=== PATIENT | female | born 1935 | race Caucasian/White ===

== ENCOUNTER 2017-06-10 13:16 | Outpatient (CLI) | payer MEDICARE, OTHER ==
[~2017-06-10] VITALS: Ht 171.4 cm; Wt 84.1 kg
[2017-06-10 14:01] VITALS: BP 143/96
[2017-06-10 14:32] LABS: BASOPHILS % (AUTO) 1 % (0-10); EOSINOPHILS # (AUTO) 0.2 10^3/uL (0.0-0.3); EOSINOPHILS % (AUTO) 2 % (0-10); HEMATOCRIT 40 % (35-52); HEMOGLOBIN 13.1 G/DL (11.5-16.0); LYMPHOCYTES # (AUTO) 1.6 X 10^3 (1.0-4.0); LYMPHOCYTES % (AUTO) 23 % (12-44); MEAN CORPUSCULAR HEMOGLOBIN 29 PG (25-34); MEAN CORPUSCULAR HGB CONC 33 G/DL (32-36); MEAN CORPUSCULAR VOLUME 87 FL (80-99); MEAN PLATELET VOLUME 10.4 FL (7.4-10.4); MONOCYTES # (AUTO) 0.9 X 10^3 (0.0-1.0); MONOCYTES % (AUTO) 12 % (0-12); NEUTROPHILS # (AUTO) 4.6 X 10^3 (1.8-7.8); NEUTROPHILS % (AUTO) 63 % (42-75); PLATELET COUNT 276 10^3/uL (130-400); RED CELL DISTRIBUTION WIDTH 15.4 % (10.0-14.5); WHITE BLOOD COUNT 7.2 10^3/uL (4.3-11.0)
[2017-06-10] MEDS ORDERED: POTA10TA6 PO (14:47)
[2017-06-10] MEDS ORDERED: ASPI-586 PO (14:47)
[2017-06-10] MEDS ORDERED: APIX2.5T PO (14:47)
[2017-06-10] MEDS ORDERED: OMEP40CA36 PO (14:47)
[2017-06-10] MEDS ORDERED: ONDN4T PO (14:47)
[2017-06-10] MEDS ORDERED: INSU300I SQ (14:47)
[2017-06-10] MEDS ORDERED: ACET325T38 PO (14:47)
[2017-06-10] MEDS ORDERED: LINA5TAB PO (14:47)
[2017-06-10] MEDS ORDERED: AMLO5TAB2 PO (14:47)
[2017-06-10] MEDS ORDERED: VALS160T2 PO (14:47)
[2017-06-10] MEDS ORDERED: LIRA0.6P SQ (14:47)
[2017-06-10] MEDS ORDERED: FURO-125 PO (14:47)
[2017-06-10] MEDS ORDERED: SIMV20TA3 PO (14:47)
[2017-06-10] MEDS ORDERED: SOTA80TA PO (14:47)
[2017-06-10] MEDS ORDERED: ESCI20TA PO (14:47)
[2017-06-10 14:49] LABS: BUN/CREATININE RATIO 23; CALCIUM 9.4 MG/DL (8.5-10.1); CARBON DIOXIDE 28 MMOL/L (21-32); CHLORIDE 104 MMOL/L (98-107); CREATININE SERUM 0.71 MG/DL (0.60-1.30); GFR ESTIMATED > 60; GLUCOSE 99 MG/DL (70-105); POTASSIUM 3.9 MMOL/L (3.6-5.0); SODIUM 141 MMOL/L (135-145)
[2017-06-12] MEDS ORDERED: ONDA4TAB8 PO (10:58)
[2017-06-12] MEDS ORDERED: ACET-168 PO (11:07)
[2017-06-12] MEDS ORDERED: CHOL20003 PO (11:07)
[2017-06-12] MEDS ORDERED: LACT1CAP58 PO (11:11)
== END 2017-06-10 15:00 ==
LOC: PREOP 13:16
PROVIDERS: ATTEND Orthopaedic Surgery Orthopaedic Surgery of the Spine
DX: Z01.810 Encounter for preprocedural cardiovascular examination (principal); Z01.812 Encounter for preprocedural laboratory examination; Z11.2 Encounter for screening for other bacterial diseases; M48.02 Spinal stenosis, cervical region
CPT/HCPCS: 36415; 80048; 85025; 87081; 93005

== ENCOUNTER 2017-06-17 06:39 | Inpatient (IN) | payer MEDICARE, OTHER ==
[2017-06-17] VITALS (20 sets, daily range): BP systolic 130–180; BP diastolic 72–106
[~2017-06-17] VITALS: Ht 171.4 cm; Wt 88.5 kg
[~2017-06-17 06:39] MED LIST: ACET-168 PO; ACET325T38 PO; AMLO5TAB2 PO; APIX2.5T PO; ASPI-586 PO; CHOL20003 PO; ESCI20TA PO; FURO-125 PO; INSU300I SQ; LACT1CAP58 PO; LINA5TAB PO; LIRA0.6P SQ; OMEP40CA36 PO; ONDA4TAB8 PO; ONDN4T PO; POTA10TA6 PO; SIMV20TA3 PO; SOTA80TA PO; VALS160T2 PO
[2017-06-17] MEDS ORDERED: ceFAZolin 2 GM IV Premixed 50 ML IV ONE (07:15)
[2017-06-17] MEDS ORDERED: ONDANSETRON 4 MG (ZOFRAN) ORAL DISSOLVE TAB PO PRN ×2 (07:15→14:00)
[2017-06-17] MEDS ORDERED: fentaNYL INJECTION 100 MCG/2 ML AMP ONE (07:19)
[2017-06-17] MEDS: LACTATED RINGERS 1,000 ML IV PRN ×2 (07:25→10:35)
[2017-06-17] MEDS ORDERED: FAMOTIDINE 20MG/2ML IV (PEPCID) ONE (07:29)
[2017-06-17] MEDS ORDERED: ACETAMINOPHEN 325 MG TABLET/CAPLET (TYLENOL) PO PRN (07:30)
[2017-06-17] MEDS ORDERED: FAMOTIDINE 20MG/2ML IV (PEPCID) IVP ONE (07:30)
[2017-06-17] MEDS ORDERED: GENTAMICIN 40 MG/ML 2 ML INJ SDV ONE (07:59)
[2017-06-17] MEDS ORDERED: NS (IVPB) 50 ML ONE (08:44)
[2017-06-17] MEDS ORDERED: LIDOCAINE PF 2% 5 ML (XYLOCAINE) VIAL ONE (08:55)
[2017-06-17] MEDS ORDERED: DEXMEDETOMIDINE 200 MCG/2 ML (PRECEDEX) VIAL IV ONE (08:55)
[2017-06-17] MEDS ORDERED: ROCURONIUM 10 MG/ML 5 ML SYRINGE IV ONE (08:55)
[2017-06-17] MEDS ORDERED: SUCCINYLCHOLINE INJ 100 MG/5 ML SYR ONE (08:55)
[2017-06-17] MEDS ORDERED: proPOfol 200 MG/20 ML (DIPRIVAN) VIAL IV ONE (08:55)
[2017-06-17] MEDS ORDERED: SEVOFLURANE (ULTANE) 15 ML INHAL SOLN ONE (08:55)
[2017-06-17] MEDS ORDERED: NON-FORMULARY MEDICATION 1 EA EA (Sotalol HCl (Sotalol) 120 MG) PO SCH (09:00)
[2017-06-17] MEDS ORDERED: MEPIVACAINE (CARBOCAINE) 2% 20 ML VIAL ONE (09:20)
[2017-06-17] MEDS ORDERED: BUP/EPI 0.5% 1:200,000 (SENSORCAINE) 30 ML VIAL ONE (09:21)
--- NOTE | 2017-06-17 10:08 | Diagnostic Imaging Report ---
INDICATION: Fluoroscopy for cervical spine surgery. FINDINGS: Fluoroscopy was provided in the OR during cervical spine surgery. Five seconds of fluoroscopy was utilized. Surgical instruments are identified posteriorly. A surgical localizing instrument is noted posteriorly. The images are significantly degraded limiting evaluation for cervical spinal levels. IMPRESSION: Fluoroscopy for cervical spine localization in the OR. Dictated by: Dictated on workstation # [id number]
--- NOTE | 2017-06-17 10:20 | Progress Note-Post Operative ---
Post-Operative Progess Note Surgeon (s)/Hogshead Mat Assembler (s) Surgeon RYAN GALARZA MD Hogshead Mat Assembler: MILTON Seaman Pre-Operative Diagnosis Cervical Stenosis, Myelopathy Post-Operative Diagnosis Same Procedure & Operative Findings Date of Procedure 06/17/17 Procedure Performed/Findings C3-6 Laminectomy Anesthesia Type GETA Estimated Blood Loss Estimated blood loss (mL): 50 Specimens/Packing Specimens Removed Cultures and path specimen RYAN GALARZA MD Jun 17, 2017 10:20 am
[2017-06-17] MEDS ORDERED: GLYCOPYRROLATE 0.2 MG/ML (ROBINUL) 2 ML VIAL ONE (11:02)
[2017-06-17] MEDS ORDERED: NEOSTIGMINE (BLOXIVERZ ) 1 MG/1ML 10 ML VIAL ONE (11:02)
[2017-06-17] MEDS ORDERED: ONDANSETRON 4 MG/2 ML (SDV) Z0FRAN IVP PRN (11:15)
[2017-06-17] MEDS ORDERED: fentaNYL INJECTION 100 MCG/2 ML AMP IVP PRN (11:15)
[2017-06-17] MEDS ORDERED: PATIENT MAY USE OWN MEDS, ALL MC SCH (13:00)
[2017-06-17] MEDS: HYDROcodone/APAP 5 MG/325 MG (LORTAB) TAB PO PRN ×3 (14:28→20:31)
[2017-06-17] MEDS: MILK OF MAGNESIA 400 MG/5 ML 30 ML UDC PO SCH ×2 (14:38→16:11)
[2017-06-17] MEDS: NS IV 1000 ML 1,000 ML IV SCH ×2 (14:38→22:48)
[2017-06-17] MEDS ORDERED: ceFAZolin INJECTION 2,000 MG in NS (IVPB) 100 ML IV SCH (15:30)
[2017-06-17] MEDS: DOCUSATE SODIUM 100 MG (COLACE) CAP PO PRN ×2 (16:10→20:31)
[2017-06-17] MEDS: ceFAZolin 2 GM IV Premixed 50 ML IV SCH ×2 (16:11→22:57)
[2017-06-17] MEDS: FUROSEMIDE 20 MG (LASIX) TAB PO SCH (16:12)
[2017-06-17] MEDS: KCL 10 MEQ TAB (MICRO K) PO SCH (16:12)
[2017-06-17] MEDS: ESCITALOPRAM 20 MG (LEXAPRO) TABLET NON-FORMULARY PO SCH (16:13)
[2017-06-17] MEDS: inSUlin (REGULAR) HUMAN 1 UNIT/0.01 ML (CHARGE PER UNIT) SC SCH ×3 (16:58→23:01)
--- NOTE | 2017-06-17 17:00 | OPERATIVE REPORT ---
DATE OF SERVICE: 06/17/2017 PREOPERATIVE DIAGNOSIS: Cervical stenosis and cervical myelopathy. POSTOPERATIVE DIAGNOSIS: Cervical stenosis and cervical myelopathy. PROCEDURE PERFORMED: Partial C3 through partial C6 laminectomy with complete excision of C4 and C5 posteriorly. DATE AND TIME OF SURGERY: Please see anesthesia record. SURGEON: Alfa Galarza MD CROWN BUFFER: JOURDAN Seaman ROLE OF MARKER DELIVERY: Aid in retraction of the procedure, suction of neural elements and wound closure. ANESTHESIA: General endotracheal. ESTIMATED BLOOD LOSS: 50 mL. INTRAVENOUS FLUIDS: Please see anesthesia record. ANTIBIOTICS: Ancef. COMPLICATIONS: None. INDICATIONS FOR PROCEDURE: The patient is an 81-year-old female with progressively intolerable myelopathy features. High-grade stenosis noted on imaging, failed conservative therapy, desires operative treatment. SPECIMENS: Cultures and pathology specimens were sent of the posterior calcified structures, which appear to be pseudogout. NEUROMONITORING: Standard intraoperative neuromonitoring was performed. Dr. Vidales was reading SSEPS, EMGs and TOFs were carried out continuously and stable throughout the procedure stable. TcMEPs were not performed due to metallic implants in her ears. DESCRIPTION OF PROCEDURE: The patient was taken to the preoperative holding area and brought back to the operative suite after induction of general anesthesia, preoperative antibiotics, carefully turned prone on Dell table with careful padding to all extremities, sterilely prepped and draped posterior cervical and thoracic spine. Incision was made overlying C3-C6. Dissection carried down to the level of the lamina. C-arm was brought in for confirmation and appropriate levels were confirmed, partial 3, complete 4, complete 5 and partial C6 laminectomy was carried out. Once the thecal sac was decompressed, some calcified fluid, which appeared like pseudogout was sent for culture and pathologic examination. Decompression was assured, hemostasis achieved with bipolar cautery and bone wax and FloSeal. Once hemostasis was obtained, wound was copiously irrigated, closed in layers. The patient transferred to recovery room in stable condition and tolerated the procedure well. Job ID: [id number] DocumentID: [id number] Dictated Date: 06/17/2017 10:15:24 Donor Services Technician Date: 06/17/2017 16:59:14 Dictated By: ALFA GALARZA MD [facility]
[2017-06-17] MEDS: ONDANSETRON 4 MG/2 ML (SDV) Z0FRAN IV PRN (17:38)
[2017-06-17] MEDS: morphine INJ 10 MG/ML 1ML (SYR OR VIAL) IM PRN ×2 (17:38→22:58)
[2017-06-17] MEDS: SIMvastatin 20 MG (ZOCOR) TAB PO SCH (20:31)
[2017-06-17] MEDS: amLODIPine 5 MG (NORVASC) TAB PO SCH (20:32)
[2017-06-17] MEDS: SOTALOL 80 MG (BETAPACE) TAB PO SCH (20:32)
[2017-06-17] MEDS: VALSARTAN 160 MG (DIOVAN) TABLET PO SCH (20:33)
[2017-06-18] VITALS (10 sets, daily range): BP systolic 138–167; BP diastolic 72–97
[2017-06-18] MEDS: HYDROcodone/APAP 5 MG/325 MG (LORTAB) TAB PO PRN ×4 (00:37→19:44)
[2017-06-18] MEDS: ONDANSETRON 4 MG/2 ML (SDV) Z0FRAN IV PRN (00:37)
[2017-06-18] MEDS: MULTIVIT W/MINERALS TAB (THERAGRAN M) PO SCH (05:44)
--- NOTE | 2017-06-18 06:15 | Progress Note (SOAP) ---
Subjective Date Seen by Provider: Jun 18, 2017 Time Seen by Provider: 06:12 Subjective/Events-last exam Pain ok Worried about BM, but + flatus Objective Exam Vital Signs Date Time Temp Pulse Resp B/P (MAP) Pulse Ox O2 Delivery O2 Flow Rate FiO2 06/18/17 06:00 91 18 167/97 (120) 94 Nasal Cannula 3.00 06/18/17 05:00 85 24 164/84 (110) 92 Nasal Cannula 3.00 06/18/17 04:00 91 Nasal Cannula 4.50 06/18/17 04:00 86 21 158/84 (108) 90 Nasal Cannula 3.00 06/18/17 03:00 85 21 158/80 (106) 94 Nasal Cannula 3.00 06/18/17 02:00 86 20 153/85 (107) 95 Nasal Cannula 3.00 06/18/17 01:00 85 06/18/17 01:00 85 24 166/82 (110) 95 Nasal Cannula 3.00 06/18/17 00:15 Nasal Cannula 3.00 06/18/17 00:00 85 21 156/81 (106) 93 Nasal Cannula 3.00 06/17/17 23:31 Nasal Cannula 3.00 06/17/17 23:30 87 20 166/85 (112) 94 Nasal Cannula 3.00 06/17/17 23:03 99.7 06/17/17 23:00 87 24 171/89 (116) 94 Nasal Cannula 3.00 06/17/17 22:30 86 24 166/91 (116) 94 Nasal Cannula 3.00 06/17/17 22:00 85 22 171/85 (113) 93 Nasal Cannula 3.00 06/17/17 21:30 83 24 172/106 (128) 94 Nasal Cannula 3.00 06/17/17 21:14 99.4 06/17/17 21:00 82 24 180/88 (118) 95 Nasal Cannula 3.00 06/17/17 20:00 80 22 176/89 (118) 93 Nasal Cannula 3.00 06/17/17 19:30 Nasal Cannula 3.00 06/17/17 19:00 79 06/17/17 19:00 79 23 163/86 (111) 93 Nasal Cannula 3.00 06/17/17 18:00 72 13 173/86 (115) 94 Nasal Cannula 3.00 06/17/17 17:00 73 23 169/87 (114) 96 Nasal Cannula 3.00 06/17/17 16:00 70 14 155/81 (105) 94 Nasal Cannula 3.00 06/17/17 16:00 96 Nasal Cannula 3.00 06/17/17 15:00 70 18 168/82 (110) 96 Nasal Cannula 3.00 06/17/17 14:43 70 06/17/17 14:00 70 19 132/77 (95) 97 Nasal Cannula 3.00 06/17/17 13:30 70 20 133/74 (93) 94 Nasal Cannula 3.00 06/17/17 13:00 70 20 135/72 (93) 92 Nasal Cannula 3.00 06/17/17 12:30 69 21 130/73 (92) 91 Nasal Cannula 3.00 06/17/17 12:15 70 18 133/75 (94) 93 Nasal Cannula 3.00 06/17/17 12:00 73 20 130/73 (92) 92 Nasal Cannula 3.00 06/17/17 11:50 98.3 74 20 132/75 (94) 94 Nasal Cannula 3.00 06/17/17 11:50 Nasal Cannula 3.00 06/17/17 07:00 98.2 102 18 146/101 (116) 92 Room Air I & O 06/18/17 07:00 Intake Total 2290 ml Output Total 550 ml Balance 1740 ml Capillary Refill : General Appearance: No Apparent Distress HEENT: PERRL/EOMI, Pharynx Normal Neck: Supple, Tender Midline, Other (Dressing changed, incision good) Respiratory: Lungs Clear, No Accessory Muscle Use, No Respiratory Distress Cardiovascular: Regular Rate, Rhythm Gastrointestinal: normal bowel sounds, non tender, soft Extremity: Normal Capillary Refill Neurologic/Psychiatric: Alert, Oriented x3, No Motor/Sensory Deficits Results Lab Laboratory Tests 06/17/17 07:10: Glucometer 154H 06/17/17 10:55: Glucometer 135H 06/17/17 23:00: Glucometer 147H Assessment/Plan Assessment/Plan Assess & Plan/Chief Complaint Cervical Stenosis Cervical Myelopathy A-fib Plan Regular floor Up with PT Work on bowels Clinical Quality Measures DVT/VTE Risk/Contraindication: Risk Factor Score Per Nursin RFS Level Per Nursing on Admit: 4+=Very High RYAN GALARZA MD 6, 2018 6:14 am
[2017-06-18] MEDS: inSUlin (REGULAR) HUMAN 1 UNIT/0.01 ML (CHARGE PER UNIT) SC SCH ×3 (06:17→19:45)
[2017-06-18] MEDS: ceFAZolin 2 GM IV Premixed 50 ML IV SCH (06:17)
[2017-06-18 06:44] LABS: BASOPHILS % (AUTO) 0 % (0-10); EOSINOPHILS % (AUTO) 0 % (0-10); HEMATOCRIT 37 % (35-52); LYMPHOCYTES % (AUTO) 8 % (12-44); MEAN CORPUSCULAR HEMOGLOBIN 29 PG (25-34); MEAN CORPUSCULAR HGB CONC 32 G/DL (32-36); MEAN CORPUSCULAR VOLUME 89 FL (80-99); MEAN PLATELET VOLUME 10.2 FL (7.4-10.4); MONOCYTES # (AUTO) 1.4 X 10^3 (0.0-1.0); MONOCYTES % (AUTO) 11 % (0-12); NEUTROPHILS # (AUTO) 9.9 X 10^3 (1.8-7.8); NEUTROPHILS % (AUTO) 80 % (42-75); PLATELET COUNT 221 10^3/uL (130-400); RED BLOOD COUNT 4.17 10^6/uL (4.35-5.85); RED CELL DISTRIBUTION WIDTH 15.4 % (10.0-14.5); WHITE BLOOD COUNT 12.3 10^3/uL (4.3-11.0)
[2017-06-18 07:03] LABS: ALANINE AMINOTRANSFERASE 81 U/L (0-55); ALBUMIN 3.7 GM/DL (3.2-4.5); ALKALINE PHOSPHATASE 157 U/L (40-136); BILIRUBIN,TOTAL 0.9 MG/DL (0.1-1.0); BUN/CREATININE RATIO 14; CALCIUM 8.6 MG/DL (8.5-10.1); CARBON DIOXIDE 25 MMOL/L (21-32); CHLORIDE 101 MMOL/L (98-107); CREATININE SERUM 0.66 MG/DL (0.60-1.30); GFR ESTIMATED > 60; GLUCOSE 179 MG/DL (70-105); POTASSIUM 3.7 MMOL/L (3.6-5.0); SODIUM 138 MMOL/L (135-145); TOTAL PROTEIN 7.2 GM/DL (6.4-8.2)
--- NOTE | 2017-06-18 08:21 | Consultation-Hospitalist ---
HPI History of Present Illness: HPI/Chief Complaint Pt is an 81yoCF with a PMH of a-fib, HTN, IDDMII, and breast cancer who was admitted to the ICU followin c3-6 laminectomy and excision fo C4-5. I am consulted for management of her chronic medical issues. She reports she is feeling well but has not had a BM yet. That is her only concern. She has not eaten much either but did try to drink an ensure. She reports her pain is well controlled now but had an "uncomfortable" night due to her surgical pain. She otherwise has no complaints. Source: patient Date Seen 06/18/17 Attending Physician Alfa Redd MD PCP Kim Parker MD Referring Physician Date of Admission Jun 17, 2017 at 6:39 am Home Medications & Allergies Home Medications Reviewed patient Home Medication Reconciliation Form Allergies Allergies Coded Allergies No Known Drug Allergies (Unverified06/10/17) Past Svnoqhj-Bhgvsa-Rnsxaj Hx Patient Social History Employed/Student: retired Alcohol Use: Denies Use Recreational Drug Use: No Smoking Status: Never a Smoker Physical Abuse Screen: No Sexual Abuse: No Recent Foreign Travel: No Contact w/other who traveled: No Recent Hopitalizations: No Recent Infectious Disease Expo: No Immunizations Up To Date Date of Pneumonia Vaccine: Jan 30, 2016 Date of Influenza Vaccine: Jan 28, 2017 Seasonal Allergies Seasonal Allergies: No Surgeries Yes (LUMPECTOMY, NECK, COLONRESECTION WITH COLOSTOMY, REVERSAL OF COLOSTOMY) Respiratory No Cardiovascular Yes (PACEMAKER) Neurological No Reproductive System Sexually Transmitted Disease: No HIV/AIDS: No Genitourinary Yes Kidney Stones Gastrointestinal Yes (HX RUPTURED BOWEL) Gastroesophageal Reflux, Polyps Musculoskeletal Yes (STENOSIS) Arthritis Endocrine History of Endocrine Disorders: Yes HEENT History of HEENT Disorders: Yes (GLASSES) Loss of Vision: Bilateral Hearing Impairment: Bilateral Hearing Aide Cancer Yes Breast Type of Treatment: Surgical Intervention Psychosocial History of Psychiatric Problem: Yes Behavioral Health Disorders: Anxiety, Depression Integumentary History of Skin or Integumenta: Yes (DRY SKIN) Blood Transfusions History of Blood Disorders: No Adverse Reaction to a Blood Tr: No (N/A) Review of Systems Constitutional: No chills, No fever EENTM: No blurred vision, No double vision, No nose congestion, No throat pain Respiratory: No cough, No dyspnea on exertion, No short of breath Cardiovascular: No chest pain, No edema, No palpitations Gastrointestinal: No abdominal pain, constipation, No diarrhea, No nausea, No vomiting Genitourinary: No dysuria, No frequency Musculoskeletal: see HPI, neck pain Skin: No lesions, No rash Psychiatric/Neurological: Denies Headache, Denies Numbness, Denies Tingling Physical Exam Physical Exam Vital Signs Vital Signs - First Documented 06/17/17 07:00 Temp 98.2 Pulse 102 Resp 18 B/P (MAP) 146/101 (116) Pulse Ox 92 O2 Delivery Room Air Capillary Refill : General Appearance: No Apparent Distress, WD/WN HEENT: PERRL/EOMI, Moist Mucous Membranes Neck: Non Tender, Supple Respiratory: Lungs Clear, No Respiratory Distress Cardiovascular: Regular Rate, Rhythm, No Murmur Gastrointestinal: Normal Bowel Sounds, Non Tender, Soft Extremity: Normal Capillary Refill, No Calf Tenderness Neurologic/Psychiatric: Alert, Oriented x3, Normal Mood/Affect Skin: Normal Color, Warm/Dry Results Results/Procedures Lab Laboratory Tests 06/18/17 06:36 Assessment/Plan Admission Diagnosis S/P LAMINECTOMY Admission Status: Other Diagnosis/Problems Diagnosis/Problems (1) Atrial fibrillation Assessment & Plan: Continue sotalol Eliquis held per Dr Redd Resume when okay with surgery (2) Essential (primary) hypertension Assessment & Plan: Continue Valsartan and Amlodipine (3) Insulin dependent diabetes mellitus Assessment & Plan: Resume basal insulin SSI ordered as well BS within goal (4) Constipation Assessment & Plan: Colace added, will add Senna-S Clinical Quality Measures DVT/VTE Risk/Contraindication: Risk Factor Score Per Nursin RFS Level Per Nursing on Admit: 4+=Very High FLOR DAILEY MD Jun 18, 2017 8:21 am
[2017-06-18] MEDS: SOTALOL 80 MG (BETAPACE) TAB PO SCH ×2 (08:40→21:14)
[2017-06-18] MEDS: ESCITALOPRAM 20 MG (LEXAPRO) TABLET NON-FORMULARY PO SCH (08:41)
[2017-06-18] MEDS: FUROSEMIDE 20 MG (LASIX) TAB PO SCH (08:41)
[2017-06-18] MEDS: KCL 10 MEQ TAB (MICRO K) PO SCH (08:42)
[2017-06-18] MEDS: MILK OF MAGNESIA 400 MG/5 ML 30 ML UDC PO SCH (08:46)
[2017-06-18] MEDS ORDERED: ESCITALOPRAM 20 MG (LEXAPRO) TABLET NON-FORMULARY PO SCH (09:00)
--- NOTE | 2017-06-18 09:30 | Physical Therapy Evaluation ---
PT Evaluation-General Medical Diagnosis Admission Date Jun 17, 2017 at 06:39 Medical Diagnosis: cervical stenosis Onset Date: Jun 17, 2017 Therapy Diagnosis Therapy Diagnosis: generalized weakness/debility Height/Weight Height (Feet): 5 Height (Inches): 7.50 Weight (Pounds): 190 Weight (Ounces): 7.0 Precautions Precautions/Isolations: Fall Prevention, Standard Precautions, Pressure Ulcer Weight Bear Status Right Lower Extremity: Right Non Weight Bearing Left Lower Extremity: Left Full Weight Bearing Referral Physician: Ivania Reason for Referral: Evaluation/Treatment Medical History Pertinent Medical History: Atrial Fib Additional Medical History cervical myelopathy Current History s/p C3- C6 laminectomy Reviewed History: Yes Social History Home: Single Level Prior/Core FIM Prior Level of Function Functional [place] Measure 0=Not Assessed/NA 4=Minimal Assistance 1=Total Assistance 5=Supervision or Setup 2=Maximal Assistance 6=Modified [place] 3=Moderate Assistance 7=Complete [place] Bed Mobility: 7 Transfers (B,C,W/C) (FIM): 7 Gait: 7 PT Evaluation-Current Subjective Patient agrees to PT. Pain Numeric Pain Scale: 10-Worst Possible Pain Location: Soft Tissue Location Body Site: Neck Pain Description: Ache, Pressure, Acute Objective Patient Orientation: Normal For Age Problem Solving: Fair Attachments: IV ROM/Strength ROM Lower Extremities bilateral LE WNL Strength Lower Extremities 4/5 bilateral LE grossly all planes Integumentary/Posture Integumentary refer to nursing notes Sensory Vision: Functional Hearing: Impaired Sensation Right Lower Extremit: Intact Sensation Left Lower Extremity: Intact Transfers Functional [place] Measure 0=Not Assessed/NA 4=Minimal Assistance 1=Total Assistance 5=Supervision or Setup 2=Maximal Assistance 6=Modified [place] 3=Moderate Assistance 7=Complete [place] Transfers (B, C, W/C) (FIM): 5 Scootin Rollin Supine to/from Sit: 5 Sit to/from Stand: 5 Gait Mode of Locomotion: Walk Anticipated Mode of Locomotion: Walk Gait (FIM): 1 Distance (FIM): 1=up to 49 ft Distance: 5' x 2 Gait Level of Assist: 5 Gait Persons Needed: 1 Gait Assistive Device: None Comments/Gait Description slightly unsteady (will utilize FWW) Balance Sitting Static: Normal Sitting Dynamic: Normal Standing Static: Fair Standing Dynamic: Fair Assessment/Needs 81 y.o. female, will benefit from skilled PT to address functional mobility to improve current LOF and to safely return to home at maximum LOF. Rehab Potential: Good PT Roller Leveler Operator Goals Intermediate Goals PT Intermediate Goals Time Frame: Jun 28, 2017 Transfers (B,C,W/C) (FIM): 6 Gait (FIM): 6 Gait distance (FIM): 3=150 ft Gait Level of Assist: 6 Gait Assistive Device: None, FWW PT Plan Problem List Problem List: Activity Tolerance, Safety, Balance, Gait, Other (pain control) Treatment/Plan Treatment Plan: Continue Plan of Care Treatment Plan: Bed Mobility, Education, Functional Activity Edwin, Functional Strength, Gait, Safety, Therapeutic Exercise, Transfers Treatment Duration: Jun 28, 2017 Frequency: 11 times per week Estimated Hrs Per Day: .5 hour per day Patient and/or Family Agrees t: Yes Safety Risks/Education Patient Education: Gait Training, Safety Issues Teaching Recipient: Patient Teaching Methods: Discussion Response to Teaching: Verbalize Understanding Discharge Recommendations Therapy D/C Recommendations: Physical Therapy Home Care Time/GCodes Time In: 836 Time Out: 851 Total Billed Treatment Time: 15 Total [facility] JAIMIE SIGALA PT Jun 18, 2017 09:30
[2017-06-18] MEDS ORDERED: FLEET ENEMA ADULT 1 EA BTL PR PRN (09:45)
[2017-06-18] MEDS ORDERED: SENNA W/DOCUSATE (SENOKOT S) TABLET PO PRN (09:45)
[2017-06-18] MEDS ORDERED: PATIENT MAY USE OWN MEDS, ALL MC SCH (10:30)
--- NOTE | 2017-06-18 11:18 | Anesthesia-General Post-Op ---
General Patient Condition Mental Status/LOC: Same as Preop Cardiovascular: Satisfactory Nausea/Vomiting: Absent Respiratory: Satisfactory Pain: Controlled Complications: Absent Post Op Complications Complications None Follow Up Care/Instructions Patient Instructions None needed. Anesthesia/Patient Condition Patient Condition Patient is doing well, no complaints, stable vital signs, no apparent adverse anesthesia problems. No complications reported per nursing. MEEK HARDWICK CRNA Jun 18, 2017 11:18
[2017-06-18] MEDS: TOUJEO SOLOSTAR 300 UNITS/ML SQ SCH (11:24)
[2017-06-18] MEDS: BISACODYL 10 MG SUPP (DULCOLAX) PR PRN (11:24)
[2017-06-18] MEDS: NS IV 1000 ML 1,000 ML IV SCH (11:27)
--- NOTE | 2017-06-18 14:48 | Physical Therapy Daily Note ---
PT Daily Note-Current Subjective Patient agrees to PT. Family present. Pain Numeric Pain Scale: 10-Worst Possible Pain Location: Soft Tissue Location Body Site: Neck Pain Description: Ache, Pressure, Acute, Sharp Appearance cervical flexion posture Mental Status Patient Orientation: Normal For Age Attachments: IV Transfers Functional [place] Measure 0=Not Assessed/NA 4=Minimal Assistance 1=Total Assistance 5=Supervision or Setup 2=Maximal Assistance 6=Modified [place] 3=Moderate Assistance 7=Complete IndependenceIRFPAI Quality Coding Scale 6 Independent with activity with or without an assistive device 5 Patient requires set up or clean up by helper. Patient completes activity by themselves 4 Supervision or touching assist (CGA). [place] provide cues , steadying assist 3 The helper provides less than half the effort to complete the activity 2 The helper provides more than half the effort to complete the activity 1 Dependent. The helper does all the effort to complete an activity 7 Patient refused to complete or attempt activity 9 The patient did not perform the activity before the current illness or injury 88 Not attempted due to Medical conditions or safety concerns Transfers (B, C, W/C) (FIM): 4 Scootin Rollin Supine to/from Sit: 4 Sit to/from Stand: 4 Bed to/from Chair: 4 Weight Bearing Right Lower Extremity: Right Non Weight Bearing Left Lower Extremity: Left Full Weight Bearing Gait Training Gait (FIM): 5 Distance (FIM): 3=150 ft Distance: 175' Gait Level of Assist: 5 Gait Persons Needed: 1 Gait Assistive Device: FWW slightly unsteady with self correction Assessment Patient requires time to complete all functional tasks and has frequent standing recovery periods due to pain/fatigue. PT to increase activity as tolerated by patient. PT Outside Plant Technician Goals Residential Goals PT Outside Plant Technician Goals Time Frame: Jun 28, 2017 Transfers (B,C,W/C) (FIM): 6 Gait (FIM): 6 Gait distance (FIM): 3=150 ft Gait Level of Assist: 6 Gait Assistive Device: None, FWW PT Plan Treatment/Plan Treatment Plan: Continue Plan of Care Treatment Plan: Bed Mobility, Education, Functional Activity Edwin, Functional Strength, Gait, Safety, Therapeutic Exercise, Transfers Treatment Duration: Jun 28, 2017 Frequency: 11 times per week Estimated Hrs Per Day: .5 hour per day Patient and/or Family Agrees t: Yes Time/GCodes Time In: 1320 Time Out: 1343 Total Billed Treatment Time: 23 Total Billed Treatment 1 visit GT x 2 23min JAIMIE SIGALA PT Jun 18, 2017 14:48
--- NOTE | 2017-06-18 15:06 | Occupational Therapy Eval ---
OT Evaluation-General/PLF Medical Diagnosis Admission Date Jun 17, 2017 at 06:39 Medical Diagnosis: cervical stenosis Onset Date: Jun 17, 2017 Therapy Diagnosis Therapy Diagnosis: decreased self care Height/Weight Height (Feet): 5 Height (Inches): 7.50 Weight (Pounds): 190 Weight (Ounces): 7.0 Precautions Precautions/Isolations: Standard Precautions Safety Interventions: None Referral Physician: Ivania Medical History Pertinent Medical History: Atrial Fib, Arthritis, DM, GERD, HTN Additional Medical History breast cancer, colon resection, kidney stones, anxiety, depression. Current History pt s/p C3-6 laminectomy Reviewed History: Yes Social History Home: Single Level Current Living Status: Alone Entry Into Home: Stairs With Railing Pt states son lives across the street and will stay with her at night for the first few nights. ADL-Prior Level of Function ADL PLOF Comments Pt reports being independent with ADLs and mobility. Uses 4WW as needed. Has carpenter assistant installer every 2 weeks. DME/Equipment: Bath Chair, Grab Bars, Shower Hose Pilot Captain, Tub/Shower Drive Self: Yes OT Current Status Subjective Pt agreeable to therapy. Pt reports 2/10 pain in neck and shoulders Mental Status/Objective Patient Orientation: Person, Place, Situation Attachments: Oxygen Current Upper Extremity ROM Grossly functional ADL-Treatment ADL-Current Pt was observed getting up to restroom and returning to bed with nursing with minimal assistance. Pt reports receiving assist with hygiene. Pt states she has been feeding herself after set up for packages/containers. Pt states she has already completed grooming tasks with assist as needed this morning. Education provided regarding ADLs and home safety. Pt states understanding of education and has no questions at this time, states children live nearby and will check on her frequently and assist as needed. Pt resting in bed with needs met and daughter present after session. Functional [place] Measure 0=Not Assessed/NA 4=Minimal Assistance 1=Total Assistance 5=Supervision or Setup 2=Maximal Assistance 6=Modified [place] 3=Moderate Assistance 7=Complete IndependenceIRFPAI Quality Coding Scale 6 Independent with activity with or without an assistive device 5 Patient requires set up or clean up by helper. Patient completes activity by themselves 4 Supervision or touching assist (CGA). [place] provide cues , steadying assist 3 The helper provides less than half the effort to complete the activity 2 The helper provides more than half the effort to complete the activity 1 Dependent. The helper does all the effort to complete an activity 7 Patient refused to complete or attempt activity 9 The patient did not perform the activity before the current illness or injury 88 Not attempted due to Medical conditions or safety concerns Eating (FIM): 5 Toilet/Commode Transfer (FIM): 4 Education OT Patient Education: Rehab process Teaching Recipient: Patient Teaching Methods: Discussion Response to Teaching: Verbalize Understanding OT Short Term Goals Short Term Goals 1=Demonstrate adherence to instructed precautions during ADL tasks. 2=Patient will verbalize/demonstrate understanding of assistive devices/ modifications for ADL. 3=Patient will improve strength/tolerance for activity to enable patient to perform ADL's. OT Mcfp Goals Mcfp Goals Time Frame: Jun 28, 2017 Eating (FIM): 6 Grooming(FIM): 6 Bathing(FIM): 5 Upper Body Dressing(FIM): 6 Lower Body Dressing(FIM): 6 Toileting(FIM): 6 Toilet/Commode Transfer(FIM): 6 Additional Goals: 1-Demonstrate ADL Tasks, 2-Verbalize Understanding, 3- ImproveStrength/Edwin 1=Demonstrate adherence to instructed precautions during ADL tasks. 2=Patient will verbalize/demonstrate understanding of assistive devices/ modifications for ADL. 3=Patient will improve strength/tolerance for activity to enable patient to perform ADL's. OT Education/Plan Problem List/Assessment Assessment: Decreased UE Strength, Dependent Transfers, Impaired Self-Care Skills Pt to benefit from skilled OT intervention for ADL training, transfers, strengthening, and home safety education to improve level of function and allow safe discharge. Discharge Recommendations Plan/Recommendations: Continue POC Treatment Plan/Plan of Care Treatment,Training & Education: Yes Patient would benefit from OT for education, treatment and training to promote independence in ADL's, mobility, safety and/or upper extremity function for ADL' s. Plan of Care: ADL Retraining, Functional Mobility, UE Funct Exercise/Act Treatment Duration: Jun 28, 2017 Frequency: 5 times per week Estimated Hrs Per Day: .25 hour per day Rehab Potential: Good Time/GCodes Start Time: 14:25 Stop Time: 14:41 Total Time Billed (hr/min): 16 Billed Treatment Time 1 visit, TO(16minutes) ARY WILLAMS OT Jun 18, 2017 15:06
[2017-06-18] MEDS: SIMvastatin 20 MG (ZOCOR) TAB PO SCH (21:14)
[2017-06-18] MEDS: amLODIPine 5 MG (NORVASC) TAB PO SCH (21:15)
[2017-06-18] MEDS: VALSARTAN 160 MG (DIOVAN) TABLET PO SCH (21:15)
[2017-06-19] VITALS (7 sets, daily range): BP systolic 153–183; BP diastolic 71–95
[2017-06-19] MEDS: HYDROcodone/APAP 5 MG/325 MG (LORTAB) TAB PO PRN ×2 (00:01→04:12)
[2017-06-19] MEDS: NS IV 1000 ML 1,000 ML IV SCH ×2 (00:34→02:00)
[2017-06-19] MEDS ORDERED: ACHD5005 PO (04:22)
--- NOTE | 2017-06-19 04:26 | Discharge Inst-Surgical ---
Discharge Inst-Surgical Depart Medication/Instructions Patient Instructions May resume aspirin and Eliquis on 06-20-17. Consults/Follow Up Goal/Follow Up Appt.: Follow up in 2 weeks Patient Instructions: Keep incision clean and dry Wear soft collar when out of bed Call with questions or concerns Activity Activity as Tolerated: Yes Activity Instructions: Avoid Pulling & Pushing Driving Instructions: No Driving for 2 Weeks No Driving When on Pain Meds: Yes Diet Discharge Diet: ADA Diet Symptoms to Report to Physicia: Numbness/Tingling, Swelling Increased, Pain Increased, Fever Over 101 Degrees F If Any Problems/Questions/Issu: Contact Your Physician, Go to Emergency Room Skin/Wound Care Infection Signs and Symptoms: Increased Redness, Increased Drainage, Increased Swelling, Temperature Above 101 F Wound Care Comment: Daily dressing changes Bathing Instructions: Shower Operative Area Clean and Dry: Keep Incision Clean/Dry Steristrips: Leave Steristrips Intact YANELIS BRADY Jun 19, 2017 04:26
--- NOTE | 2017-06-19 04:31 | Discharge Summary ---
YANELIS BRADY 06/19/17 4:31am: Diagnosis/Chief Complaint Date of Admission Jun 17, 2017 at 06:39 Date of Discharge Discharge Date: Jun 19, 2017 Admission Diagnosis Admission Diagnosis Cervical stenosis with radiculopathy Atrial Fibrillation Chronic anticoagulation Insulin dependant diabetes Discharge Diagnosis Cervical stenosis with radiculopathy Atrial Fibrillation Chronic anticoagulation Insulin dependant diabetes Reason Hospital Visit Cervical stenosis with radiculopathy Discharge Summary Hospital Course Hospital Course Patient was found to have severe cervical stenosis, in the outpatient setting. She was brought to [facility] OR for scheduled C3-6 laminectomy. Post operatively the patient progressed well with PT and had good pain control with oral analgesics. There were no significant events during her hospital course. Due to her progress, she was discharged on POD #2 Labs Laboratory Tests 06/17/17 07:10: Glucometer 154H 06/17/17 10:55: Glucometer 135H 06/17/17 23:00: Glucometer 147H 06/18/17 06:08: Glucometer 170H 06/18/17 06:36: White Blood Count 12.3H, Red Blood Count 4.17L, Red Cell Distribution Width 15.4H, Neutrophils (%) (Auto) 80H, Lymphocytes (%) (Auto) 8L, Neutrophils # ( Auto) 9.9H, Monocytes # (Auto) 1.4H, Glucose Level 179H, Aspartate Amino Transf (AST/SGOT) 98H, Alanine Aminotransferase (ALT/SGPT) 81H, Alkaline Phosphatase 157H 06/18/17 10:50: Glucometer 189H 06/18/17 19:27: Glucometer 208H Procedures C3-[address] Kay Discharge Physical Examination Allergies: Coded Allergies: No Known Drug Allergies (Unverified , 06/10/17) Vitals & I&Os Vital Signs Date Time Temp Pulse Resp B/P (MAP) Pulse Ox O2 Delivery O2 Flow Rate FiO2 06/19/17 00:30 74 153/71 (98) 06/19/17 00:00 98.9 22 92 Nasal Cannula 3.00 General Appearance: Alert, Oriented X3, No Acute Distress Respiratory: Normal Air Movement Abdominal: Normal Bowel Sounds, Soft Skin: Other (Incision CDI, No erythema, fluctuance, or induration) Neuro: Normal Gait, Normal Tone, Sensation Intact Psych/Mental Status: Mental Status NL Discharge Home Medications Reviewed and agree with Discharge Medication list on patient's Discharge Instruction sheet Instructions to Patient/Family Please see electronic discharge instructions given to patient. Clinical Quality Measures DVT/VTE Risk/Contraindication: Risk Factor Score Per Nursin RFS Level Per Nursing on Admit: 4+=Very High RYAN GALARZA MD 06/20/17 6:41am: Diagnosis/Chief Complaint Discharge Date: Jun 20, 2017 Discharge Diagnosis Cervical Myelopathy Cervical pseudogout Discharge Summary Hospital Course Labs Laboratory Tests 06/17/17 07:10: Glucometer 154H 06/17/17 10:55: Glucometer 135H 06/17/17 23:00: Glucometer 147H 06/18/17 06:08: Glucometer 170H 06/18/17 06:36: White Blood Count 12.3H, Red Blood Count 4.17L, Red Cell Distribution Width 15.4H, Neutrophils (%) (Auto) 80H, Lymphocytes (%) (Auto) 8L, Neutrophils # ( Auto) 9.9H, Monocytes # (Auto) 1.4H, Glucose Level 179H, Aspartate Amino Transf (AST/SGOT) 98H, Alanine Aminotransferase (ALT/SGPT) 81H, Alkaline Phosphatase 157H 06/18/17 10:50: Glucometer 189H 06/18/17 19:27: Glucometer 208H 06/19/17 06:27: Glucometer 137H 06/19/17 11:24: Glucometer 171H 06/19/17 16:10: Glucometer 114H 06/19/17 20:59: Glucometer 166H 06/20/17 05:54: Glucometer 146H Discharge Physical Examination Allergies: Coded Allergies: No Known Drug Allergies (Unverified , 06/10/17) Vitals & I&Os Vital Signs Date Time Temp Pulse Resp B/P (MAP) Pulse Ox O2 Delivery O2 Flow Rate FiO2 06/20/17 00:45 98.4 104 16 134/77 (96) 94 Nasal Cannula 1.00 YANELIS BRADY Jun 19, 2017 4:31 am RYAN GALARZA MD Jun 20, 2017 6:41 am
[2017-06-19] MEDS: MULTIVIT W/MINERALS TAB (THERAGRAN M) PO SCH (06:38)
[2017-06-19] MEDS: inSUlin (REGULAR) HUMAN 1 UNIT/0.01 ML (CHARGE PER UNIT) SC SCH ×4 (06:39→21:01)
[2017-06-19] MEDS: ACETAMINOPHEN 500 MG TAB (TYLENOL) PO PRN ×3 (08:00→21:02)
[2017-06-19] MEDS: SOTALOL 80 MG (BETAPACE) TAB PO SCH ×2 (08:16→21:03)
[2017-06-19] MEDS: KCL 10 MEQ TAB (MICRO K) PO SCH (08:16)
[2017-06-19] MEDS: FUROSEMIDE 20 MG (LASIX) TAB PO SCH (08:17)
[2017-06-19] MEDS: ESCITALOPRAM 20 MG (LEXAPRO) TABLET NON-FORMULARY PO SCH (08:17)
[2017-06-19] MEDS: TOUJEO SOLOSTAR 300 UNITS/ML SQ SCH (08:17)
[2017-06-19] MEDS: MILK OF MAGNESIA 400 MG/5 ML 30 ML UDC PO SCH (08:21)
[2017-06-19] MEDS: DOCUSATE SODIUM 100 MG (COLACE) CAP PO PRN (08:22)
[2017-06-19] MEDS ORDERED: ACETAMINOPHEN 500 MG TAB (TYLENOL) ONE (08:47)
--- NOTE | 2017-06-19 08:55 | Physical Therapy Daily Note ---
PT Daily Note-Current Subjective Patient agrees to PT. Pain Numeric Pain Scale: 8 Location: Soft Tissue Location Body Site: Neck Pain Description: Sharp Mental Status Patient Orientation: Normal For Age Attachments: IV Transfers Functional [place] Measure 0=Not Assessed/NA 4=Minimal Assistance 1=Total Assistance 5=Supervision or Setup 2=Maximal Assistance 6=Modified [place] 3=Moderate Assistance 7=Complete IndependenceIRFPAI Quality Coding Scale 6 Independent with activity with or without an assistive device 5 Patient requires set up or clean up by helper. Patient completes activity by themselves 4 Supervision or touching assist (CGA). [place] provide cues , steadying assist 3 The helper provides less than half the effort to complete the activity 2 The helper provides more than half the effort to complete the activity 1 Dependent. The helper does all the effort to complete an activity 7 Patient refused to complete or attempt activity 9 The patient did not perform the activity before the current illness or injury 88 Not attempted due to Medical conditions or safety concerns Transfers (B, C, W/C) (FIM): 5 Scootin Rollin Supine to/from Sit: 5 Sit to/from Stand: 5 Bed to/from Chair: 5 Weight Bearing Right Lower Extremity: Right Non Weight Bearing Left Lower Extremity: Left Full Weight Bearing Gait Training Gait (FIM): 5 Distance (FIM): 3=150 ft Distance: 250' Gait Level of Assist: 5 Gait Assistive Device: FWW safe and functional gait sequence with FWW Assessment Patient requires much encouragement to participate with therapy and to wear soft collar. Plan dismissal to home on this date with family. PT Residential Goals Residential Goals PT Lotus Notes Administrator Goals Time Frame: Jun 28, 2017 Transfers (B,C,W/C) (FIM): 6 Gait (FIM): 6 Gait distance (FIM): 3=150 ft Gait Level of Assist: 6 Gait Assistive Device: None, FWW PT Plan Treatment/Plan Treatment Plan: Discontinue PT Treatment Plan: Bed Mobility, Education, Functional Activity Edwin, Functional Strength, Gait, Safety, Therapeutic Exercise, Transfers Treatment Duration: Jun 28, 2017 Frequency: 11 times per week Estimated Hrs Per Day: .5 hour per day Patient and/or Family Agrees t: Yes Time/GCodes Time In: 805 Time Out: 816 Total Billed Treatment Time: 11 Total Billed Treatment 1 visit GT 11 min JAIMIE SIGALA PT Jun 19, 2017 08:55
[2017-06-19] MEDS ORDERED: INSULIN GLARGINE HUM REC ANLOG 18 UNIT SQ SCH (09:00)
[2017-06-19] MEDS ORDERED: [UNRECOGNIZED DRUG - OTHER] SQ SCH (09:00)
--- NOTE | 2017-06-19 11:14 | Progress Note-Hospitalist ---
Subjective HPI/CC On Admission Date Seen by Provider: Jun 19, 2017 Time Seen by Provider: 11:08 Pt is an 81yoCF with a PMH of a-fib, HTN, IDDMII, and breast cancer who was admitted to the ICU followin c3-6 laminectomy and excision fo C4-5. I am consulted for management of her chronic medical issues. She reports she is feeling well but has not had a BM yet. That is her only concern. She has not eaten much either but did try to drink an ensure. She reports her pain is well controlled now but had an "uncomfortable" night due to her surgical pain. She otherwise has no complaints. Subjective/Events-last exam Pt reports surgical pain at neck. Pain medicine helping but worried about impact narcotics have on constipation. Feeling somewhat nauseated as well. Discussed IS. has not been using. Complains of scratchy voice from surgery still. Declines cough drops. Objective Exam Vital Signs Vital Signs Date Time Temp Pulse Resp B/P (MAP) Pulse Ox O2 Delivery O2 Flow Rate FiO2 06/17/17 07:00 98.2 102 18 146/101 (116) 92 Room Air 06/17/17 11:50 3.00 Capillary Refill : General Appearance: No Apparent Distress, WD/WN Respiratory: Lungs Clear, No Respiratory Distress Cardiovascular: Regular Rate, Rhythm, No Murmur Gastrointestinal: Normal Bowel Sounds, Non Tender, Soft Neurologic/Psychiatric: Alert, Oriented x3, Normal Mood/Affect Assessment/Plan Assessment and Plan Assess & Plan/Chief Complaint s/p cervical laminectomy Diagnosis/Problems Diagnosis/Problems (1) Atrial fibrillation Assessment & Plan: Continue sotalol Eliquis held per Dr Redd Resume when okay with surgery (2) Essential (primary) hypertension Assessment & Plan: Continue Valsartan and Amlodipine (3) Insulin dependent diabetes mellitus Assessment & Plan: Resume basal insulin SSI ordered as well BS within goal (4) Constipation Assessment & Plan: Continue Colace and Senna-S Will try Dulcolax as well today had BM yesterday (5) Prophylactic measure Assessment & Plan: Lovenox when ok with surgeon Saline Lock ADA diet Ok for DC from medical standpoint when okay with primary FLOR DAILEY MD Jun 19, 2017 11:14 am
[2017-06-19] MEDS ORDERED: ONDANSETRON 4 MG (ZOFRAN) ORAL DISSOLVE TAB PO PRN (11:15)
[2017-06-19] MEDS: BISACODYL 10 MG SUPP (DULCOLAX) PR PRN (12:19)
--- NOTE | 2017-06-19 12:55 | Physical Therapy Progress Note ---
Therapy Progress Note Patient declined p.m. treatment due to bowel issues and receiving the remedy. PT will resume in a.m. 1 visit JAIMIE SIGALA PT Jun 19, 2017 12:55
--- NOTE | 2017-06-19 13:38 | Occ Therapy Progress Note ---
Therapy Progress Note [id number] Pt seen in room, declined OT because she said she was recovering from the effects of a bowel procedure earlier today. OKSANA GARCIA OT Jun 19, 2017 13:38
[2017-06-19] MEDS: ONDANSETRON 4 MG/2 ML (SDV) Z0FRAN IV PRN (19:55)
[2017-06-19] MEDS ORDERED: ZOLPIDEM 5 MG (AMBIEN) TAB PO PRN (20:30)
[2017-06-19] MEDS: SIMvastatin 20 MG (ZOCOR) TAB PO SCH (21:02)
[2017-06-19] MEDS: VALSARTAN 160 MG (DIOVAN) TABLET PO SCH (21:03)
[2017-06-19] MEDS: amLODIPine 5 MG (NORVASC) TAB PO SCH (21:03)
[2017-06-20 00:45] VITALS: BP 134/77
[2017-06-20] MEDS: inSUlin (REGULAR) HUMAN 1 UNIT/0.01 ML (CHARGE PER UNIT) SC SCH ×2 (06:08→10:49)
[2017-06-20] MEDS: MULTIVIT W/MINERALS TAB (THERAGRAN M) PO SCH (06:08)
[2017-06-20] MEDS: ACETAMINOPHEN 500 MG TAB (TYLENOL) PO PRN ×2 (06:08→12:07)
--- NOTE | 2017-06-20 06:40 | Progress Note (SOAP) ---
Subjective Date Seen by Provider: Jun 20, 2017 Time Seen by Provider: 06:38 Subjective/Events-last exam Feels better after BM yesterday, but still thinks she needs to go somewhere like skilled. Otherwise she thinks her gait/walking is improving. Objective Exam Vital Signs Date Time Temp Pulse Resp B/P (MAP) Pulse Ox O2 Delivery O2 Flow Rate FiO2 06/20/17 00:45 98.4 104 16 134/77 (96) 94 Nasal Cannula 1.00 06/19/17 21:00 Nasal Cannula 2.00 06/19/17 20:57 110 179/95 (123) 06/19/17 19:34 Nasal Cannula 1.00 06/19/17 16:00 99.9 80 18 183/84 (117) 92 Nasal Cannula 1.00 06/19/17 12:00 97.9 77 20 153/82 (105) 97 Nasal Cannula 1.00 06/19/17 09:00 Room Air 06/19/17 08:00 97.8 77 22 164/77 (106) 92 Nasal Cannula 1.00 I & O 06/20/17 07:00 Intake Total 1770 ml Output Total 2850 ml Balance -1080 ml Capillary Refill : General Appearance: No Apparent Distress Neck: Supple Respiratory: No Accessory Muscle Use, No Respiratory Distress Gastrointestinal: non tender, soft Extremity: Normal Capillary Refill Neurologic/Psychiatric: Alert, Oriented x3, No Motor/Sensory Deficits Results Lab Laboratory Tests 06/19/17 11:24: Glucometer 171H 06/19/17 16:10: Glucometer 114H 06/19/17 20:59: Glucometer 166H 06/20/17 05:54: Glucometer 146H Microbiology 06/17/17 Acid Fast Bacilli Culture (Ref Lab - Preliminary, Resulted Assessment/Plan Assessment/Plan Assess & Plan/Chief Complaint Cervical Stenosis Cervical Myelopathy Pseudogout in neck A-fib Plan d/c to Skilled, Inpt Rehab Clinical Quality Measures DVT/VTE Risk/Contraindication: Risk Factor Score Per Nursin RFS Level Per Nursing on Admit: 4+=Very High RYAN GALARZA MD Jun 20, 2017 6:40 am
[2017-06-20 08:00] VITALS: BP 145/79
[2017-06-20] MEDS: KCL 10 MEQ TAB (MICRO K) PO SCH (08:36)
[2017-06-20] MEDS: SOTALOL 80 MG (BETAPACE) TAB PO SCH (08:36)
[2017-06-20] MEDS: FUROSEMIDE 20 MG (LASIX) TAB PO SCH (08:37)
[2017-06-20] MEDS: MILK OF MAGNESIA 400 MG/5 ML 30 ML UDC PO SCH (08:37)
[2017-06-20] MEDS: TOUJEO SOLOSTAR 300 UNITS/ML SQ SCH (08:37)
[2017-06-20] MEDS: ESCITALOPRAM 20 MG (LEXAPRO) TABLET NON-FORMULARY PO SCH (08:37)
--- NOTE | 2017-06-20 09:35 | Physical Therapy Daily Note ---
PT Daily Note-Current Subjective Patient is in bed and agrees to PT. Patient donns soft cervical collar independently. Pain Numeric Pain Scale: 5-Moderate Pain Location: Posterior, Soft Tissue Location Body Site: Neck Pain Description: Sharp Mental Status Patient Orientation: Normal For Age Transfers Functional [place] Measure 0=Not Assessed/NA 4=Minimal Assistance 1=Total Assistance 5=Supervision or Setup 2=Maximal Assistance 6=Modified [place] 3=Moderate Assistance 7=Complete IndependenceIRFPAI Quality Coding Scale 6 Independent with activity with or without an assistive device 5 Patient requires set up or clean up by helper. Patient completes activity by themselves 4 Supervision or touching assist (CGA). [place] provide cues , steadying assist 3 The helper provides less than half the effort to complete the activity 2 The helper provides more than half the effort to complete the activity 1 Dependent. The helper does all the effort to complete an activity 7 Patient refused to complete or attempt activity 9 The patient did not perform the activity before the current illness or injury 88 Not attempted due to Medical conditions or safety concerns Transfers (B, C, W/C) (FIM): 5 Rollin Supine to/from Sit: 5 Weight Bearing Right Lower Extremity: Right Non Weight Bearing Left Lower Extremity: Left Full Weight Bearing Gait Training Gait (FIM): 5 Distance (FIM): 3=150 ft Distance: 275' Gait Level of Assist: 5 Gait Assistive Device: FWW slightly unsteady with self correction. Patient received an Ambien last night and appears to have residual effect. RN is aware. Exercises Supine Ex: Ankle pumps, Quad Set, Heel Slides Supine Reps: 20 Seated Therapy Exercises: Ankle pumps, Long arc quads, Hip flexion Seated Reps: 25 (2 sets) Assessment Patient is up in recliner with needs met. Patient requires much encouragement to participate with PT and reports she just wants to be in bed. PT educated patient on importance of up in chair to prevent possible negative side effects from occurring. Patient voices understanding. PT Cannery Worker Goals Fdc Goals PT Fdc Goals Time Frame: Jun 28, 2017 Transfers (B,C,W/C) (FIM): 6 Gait (FIM): 6 Gait distance (FIM): 3=150 ft Gait Level of Assist: 6 Gait Assistive Device: None, FWW PT Plan Treatment/Plan Treatment Plan: Continue Plan of Care Treatment Plan: Bed Mobility, Education, Functional Activity Edwin, Functional Strength, Gait, Safety, Therapeutic Exercise, Transfers Treatment Duration: Jun 28, 2017 Frequency: 11 times per week Estimated Hrs Per Day: .5 hour per day Patient and/or Family Agrees t: Yes Time/GCodes Time In: 845 Time Out: 908 Total Billed Treatment Time: 23 Total Billed Treatment 1 visit EX 10 min GT 13 min JAIMIE SIGALA PT Jun 20, 2017 09:35
--- NOTE | 2017-06-20 14:31 | Discharge Inst-Skilled Nursing ---
Discharge Inst-Skilled NF Chief Complaint Pt is an 81yoCF with a PMH of a-fib, HTN, IDDMII, and breast cancer who was admitted to the ICU followin c3-6 laminectomy and excision fo C4-5. I am consulted for management of her chronic medical issues. She reports she is feeling well but has not had a BM yet. That is her only concern. She has not eaten much either but did try to drink an ensure. She reports her pain is well controlled now but had an "uncomfortable" night due to her surgical pain. She otherwise has no complaints. Patient Instructions Patient Problems: Cervical Stenosis, Myelopathy, AFib Goal: Independent living Consult/Follow Up/Orders Skilled NF Admit to: Certification (SNF) I certify that SNF services are required to be given on an inpatient basis because of the above named patient's need for usp care on a continuing basis for the conditions(s) for which he/she was receiving inpatient hospital services prior to his/her transfer to the SNF. [facility] Facility Order: Nursing Services, Mat Machine Tender-Evaluate & Treat, Physical Therapy-Evaluate & Treat, Speech Language-Evaluate & Treat, Wound Care-Eval/Treat Discharge Diet: ADA Diet Daily Activity as Tolerated: Yes New & Resume Previous Orders Ryan Redd Jun 20, 2017 14:30 RYAN REDD MD Jun 20, 2017 2:31 pm
--- NOTE | 2017-06-20 15:39 | Physical Therapy Daily Note ---
PT Daily Note-Current Subjective Patient agrees to PT. Family present. Pain Numeric Pain Scale: 10-Worst Possible Pain Location: Soft Tissue Location Body Site: Neck Pain Description: Acute Mental Status Patient Orientation: Normal For Age Transfers Functional [place] Measure 0=Not Assessed/NA 4=Minimal Assistance 1=Total Assistance 5=Supervision or Setup 2=Maximal Assistance 6=Modified [place] 3=Moderate Assistance 7=Complete IndependenceIRFPAI Quality Coding Scale 6 Independent with activity with or without an assistive device 5 Patient requires set up or clean up by helper. Patient completes activity by themselves 4 Supervision or touching assist (CGA). [place] provide cues , steadying assist 3 The helper provides less than half the effort to complete the activity 2 The helper provides more than half the effort to complete the activity 1 Dependent. The helper does all the effort to complete an activity 7 Patient refused to complete or attempt activity 9 The patient did not perform the activity before the current illness or injury 88 Not attempted due to Medical conditions or safety concerns Transfers (B, C, W/C) (FIM): 5 Scootin Rollin Supine to/from Sit: 5 Sit to/from Stand: 5 Bed to/from Chair: 5 Weight Bearing Right Lower Extremity: Right Non Weight Bearing Left Lower Extremity: Left Full Weight Bearing Gait Training Gait (FIM): 5 Distance: 275' Gait Level of Assist: 5 Gait Assistive Device: FWW improved from a.m.; steady, reciprocal pattern Assessment Patient tolerated treatment well and is hoping to dismiss to [place] on this date. PT Fpc Goals Program Attendant Goals PT Program Attendant Goals Time Frame: Jun 28, 2017 Transfers (B,C,W/C) (FIM): 6 Gait (FIM): 6 Gait distance (FIM): 3=150 ft Gait Level of Assist: 6 Gait Assistive Device: None, FWW PT Plan Treatment/Plan Treatment Plan: Continue Plan of Care Treatment Plan: Bed Mobility, Education, Functional Activity Edwin, Functional Strength, Gait, Safety, Therapeutic Exercise, Transfers Treatment Duration: Jun 28, 2017 Frequency: 11 times per week Estimated Hrs Per Day: .5 hour per day Patient and/or Family Agrees t: Yes Time/GCodes Time In: 1300 Time Out: 1314 Total Billed Treatment Time: 14 Total Billed Treatment 1 visit GT 14 min JAIMIE SIGALA PT Jun 20, 2017 15:39
== END 2017-06-20 16:20 | DRG 516 ==
LOC: 4TH 06:39 → SURG 06:40 → EDSTATUS 09:30 → ICU 11:50 → 4TH 06-18 10:32
PROVIDERS: ADMIT Orthopaedic Surgery Orthopaedic Surgery of the Spine; ATTEND Orthopaedic Surgery Orthopaedic Surgery of the Spine
PROC: 0PB30ZZ Excision of Cervical Vertebra, Open Approach (ICD-10-PCS; principal; 2017-06-17 08:58)
DX: M48.02 Spinal stenosis, cervical region (principal); M54.12 Radiculopathy, cervical region; G95.9 Disease of spinal cord, unspecified; M11.28 Other chondrocalcinosis, vertebrae; I48.91 Unspecified atrial fibrillation; I10 Essential (primary) hypertension; E11.9 Type 2 diabetes mellitus without complications; K21.9 Gastro-esophageal reflux disease without esophagitis; M19.91 Primary osteoarthritis, unspecified site; F41.9 Anxiety disorder, unspecified; F32.9 Major depressive disorder, single episode, unspecified; K59.00 Constipation, unspecified; Z95.0 Presence of cardiac pacemaker; Z79.4 Long term (current) use of insulin; Z85.3 Personal history of malignant neoplasm of breast; Z86.010 Personal history of colon polyps; Z90.49 Acquired absence of other specified parts of digestive tract; Z97.4 Presence of external hearing-aid
CPT/HCPCS: 36415; 80053; 82962; 85025; 87070; 87075; 87101; 87116; 87205; 94664